=== PATIENT | female | born 1955 | race Caucasian/White ===

== ENCOUNTER 2018-01-25 22:04 | Emergency (ER) | payer OTHER ==
[~2018-01-25] VITALS: Ht 152.4 cm; Wt 68.9 kg
[2018-01-25] MEDS ORDERED: COZAAR25 MG (22:31)
[2018-01-26] MEDS ORDERED: KETO10TA2 PO (05:30)
[2018-01-26] MEDS ORDERED: NORFLEX100MG PO (05:30)
== END 2018-01-26 | disposition home or self-care (01) ==
LOC: ER 22:04
DX: S30.0XXA Contusion of lower back and pelvis, initial encounter (principal); W18.39XA Other fall on same level, initial encounter; Y93.89 Activity, other specified; Y92.89 Other specified places as the place of occurrence of the external cause; Y99.8 Other external cause status

== ENCOUNTER 2020-06-04 06:20 | Day surgery (SDC) | payer OTHER ==
[~2020-06-04 06:20] MED LIST: ATORVASTATIN CA20 MG PO; COZAAR100 MG PO; COZAAR25 MG; KETO10TA2 PO; NORFLEX100MG PO; NORVASC2.5 M1 PO
== END 2020-06-04 15:30 | disposition home or self-care (01) ==
LOC: CIR.AMB 06:20
PROVIDERS: ATTEND Orthopaedic Surgery Hand Surgery
DX: M13.841 Other specified arthritis, right hand (principal); Z20.828 Contact with and (suspected) exposure to other viral communicable diseases

== ENCOUNTER 2021-10-17 22:40 | Emergency (ER) | payer OTHER ==
[~2021-10-17] VITALS: Ht 152.4 cm; Wt 72.6 kg
[2021-10-18] MEDS ORDERED: NAPROXEN375 MG PO (01:37)
[2021-10-18] MEDS ORDERED: MUPIROCIN15 GM TOP (01:37)
== END 2021-10-18 02:54 | disposition home or self-care (01) ==
LOC: ER 22:40
DX: S61.242A Puncture wound with foreign body of right middle finger without damage to nail, initial encounter (principal); W60.XXXA Contact with nonvenomous plant thorns and spines and sharp leaves, initial encounter; Y93.89 Activity, other specified; Y92.89 Other specified places as the place of occurrence of the external cause

== ENCOUNTER 2023-07-16 18:32 | Emergency (ER) | payer OTHER ==
[~2023-07-16] VITALS: Ht 149.9 cm; Wt 61.2 kg
[~2023-07-16 18:32] MED LIST changes: +MUPIROCIN15 GM TOP; +NAPROXEN375 MG PO
[2023-07-16] MEDS ORDERED: ROSUVASTATIN CA20 MG PO (18:41)
[2023-07-16] MEDS ORDERED: LOSARTAN-HCTZ1 EAC2 PO (18:41)
== END 2023-07-17 01:48 | disposition home or self-care (01) ==
LOC: ER 18:32
DX: S93.401A Sprain of unspecified ligament of right ankle, initial encounter (principal); W18.30XA Fall on same level, unspecified, initial encounter; Y93.9 Activity, unspecified; Y92.512 Supermarket, store or market as the place of occurrence of the external cause; Y99.9 Unspecified external cause status; M25.561 Pain in right knee; I10 Essential (primary) hypertension